=== PATIENT | male | born 1975 | race Caucasian/White ===

== ENCOUNTER 2016-12-27 04:36 | Emergency (ER) | payer SELFPAY ==
[2016-12-27 04:42] VITALS: BP 126/83
[2016-12-27] MEDS ORDERED: BUPIVACAINE HCL 0.75% INJ/PF (7.5 MG/1 ML) 10 ML SDV INJ ONE (05:01)
[2016-12-27] MEDS ORDERED: PENICILLIN V POTASSIUM 500 MG TABLET PO ONE (05:02)
[2016-12-27] MEDS ORDERED: HYDROCODONE/ACETAMINOPHEN 5-325 MG 6 TAB/DSPK PO PRN (05:02)
--- NOTE | 2016-12-27 05:17 | ER Document Report ---
HPI - HPI Patient complains to provider of: dental pain Pain Level: 5 Context: 41-year-old male, chief complaint of dental pain starting yesterday, pain is in the right upper posterior jaw area, patient has known fractures in that area by report. He denies sore throat, fever, neck pain, headache. He states he has had dental caries and extractions in the past. - CARDIOVASCULAR Cardiovascular: DENIES: Chest pain - REPRODUCTIVE Reproductive: DENIES: : - DERM Skin Color: Normal - NURSING COMMENTS Comment: toothache to right upper molar. Past Medical History - General Information source: Patient - Social History Smoking Status: Current Some Day Smoker Frequency of alcohol use: Occasional Drug Abuse: Marijuana Lives with: Alone Family History: Reviewed & Not Pertinent Patient has suicidal ideation: No Patient has homicidal ideation: No Neurological Medical History: Reports: Hx Cerebrovascular Accident Renal/ Medical History: Denies: Hx Peritoneal Dialysis Musculoskeltal Medical History: Reports Hx Musculoskeletal Trauma - c6 facet fx - Immunizations Immunizations up to date: Yes Hx Diphtheria, Pertussis, Tetanus Vaccination: Yes Vertical Provider Document - CONSTITUTIONAL General Appearance: Moderate Distress - patient holding the right side of his face - INFECTION CONTROL TRAVEL OUTSIDE OF THE U.S. IN LAST 30 DAYS: No - HEENT HEENT: Atraumatic, Normocephalic. negative: Normal ENT Exam - Widespread dental decay, otherwise normal exam Mouth Diagram: 1 - Dental fracture with mild surrounding erythema, no drainable abscess or other abnormality noted - NECK Neck: Normal Inspection - RESPIRATORY Respiratory: Breath Sounds Normal, No Respiratory Distress O2 Sat by Pulse Oximetry: 96 - CARDIOVASCULAR Cardiovascular: Regular Rate, Regular Rhythm - GI/ABDOMEN Gastrointestinal: Abdomen Soft, Abdomen Non-Tender Course - Re-evaluation Re-evalutation: Discussed dental block with patient, he eagerly accepted, block with excellent results. No evidence of abscess or other abnormality, discussed treatment, discussed follow-up with dentist, provided with discount clinic list, discussed return precautions, patient states understanding and agreement. - Vital Signs Vital signs: Temp Pulse Resp BP Pulse Ox 97.7 F 64 17 126/83 H 96 12/27/16 04:41 12/27/16 04:41 12/27/16 04:41 12/27/16 04:41 12/27/16 04:41 Procedures - Additional Procedures dental block Notes: 12/27/16 05:30 Alveolar (superior, posterior) nerve block placed on the right side with 3 mL's of 0.75% bupivacaine, 25-gauge needle inserted above the gumline, aspiration performed with no bloody aspiration noted, patient with rapid and full anesthesia afterwards. No significant bleeding or other developed symptoms afterwards. Discharge - Discharge Clinical Impression: Tooth infection Condition: Stable Disposition: HOME, SELF-CARE Additional Instructions: Take the antibiotic medication as prescribed, take the pain medication if needed. Follow-up with the dentist for repair to prevent this from happening again. Return to emergency department for any concerning or worsening symptoms including facial swelling. Prescriptions: Hydrocodone/Acetaminophen [Babcock 5-325 mg Tablet] 1 - 2 tab PO ASDIR #8 tablet Penicillin V Potassium [Penicillin Vk 500 mg Tablet] 500 mg PO BID #20 tablet
== END 2016-12-27 05:23 | disposition home or self-care (01) ==
LOC: ER 04:36
PROC: 3E0T3BZ Introduction of Anesthetic Agent into Peripheral Nerves and Plexi, Percutaneous Approach (ICD-10-PCS; principal; 2016-12-27)
DX: K04.7 Periapical abscess without sinus (principal); F17.200 Nicotine dependence, unspecified, uncomplicated; Z86.73 Personal history of transient ischemic attack (TIA), and cerebral infarction without residual deficits
CPT/HCPCS: 99282; 64400; J3490

== ENCOUNTER 2017-04-12 02:46 | Emergency (ER) | payer SELFPAY ==
[2017-04-12 02:52] VITALS: BP 117/82
--- NOTE | 2017-04-12 03:21 | ER Document Report ---
ED Oral Problem - General Mode of Arrival: Ambulatory Information source: Patient TRAVEL OUTSIDE OF THE U.[place]. IN LAST 30 DAYS: No - HPI Patient complains to provider of: Toothache Onset: Yesterday - Refer to HPI notes Similar symptoms previously: No Recently seen / treated by doctor/dentist: No - General Chief Complaint: Toothache Stated Complaint: TOOTHACHE Time Seen by Provider: 04/12/17 03:09 Notes: Patient is a 41 year old male presenting to the emergency department for a toothache. Patient states his pain started yesterday and has worsened today. Patient states he has had a broken tooth for a while. Patient does not have a dentist. Patient has no known allergies. (ZION FOOTE) - Related Data Allergies/Adverse Reactions: No Known Allergies Allergy (Verified 04/12/17 02:50) Past Medical History - General Information source: Patient - Social History Smoking Status: Unknown if Ever Smoked Family History: None Patient has suicidal ideation: No Patient has homicidal ideation: No Neurological Medical History: Reports: Hx Cerebrovascular Accident Musculoskeltal Medical History: Reports Hx Musculoskeletal Trauma - c6 facet fx Surgical Hx: Negative - Immunizations Immunizations up to date: Yes Hx Diphtheria, Pertussis, Tetanus Vaccination: Yes Review of Systems - Review of Systems Constitutional: No symptoms reported EENT: See HPI, Dental problem Cardiovascular: No symptoms reported Respiratory: No symptoms reported Gastrointestinal: No symptoms reported Genitourinary: No symptoms reported Male Genitourinary: No symptoms reported Musculoskeletal: No symptoms reported Skin: No symptoms reported Hematologic/Lymphatic: No symptoms reported Neurological/Psychological: No symptoms reported -: Yes All other systems reviewed and negative Physical Exam - Vital signs Interpretation: Normal - Vital signs Vitals: Temp Pulse Resp BP Pulse Ox 97.5 F 78 18 117/82 98 04/12/17 02:51 04/12/17 02:51 04/12/17 02:51 04/12/17 02:51 04/12/17 02:51 - Notes Notes: GENERAL: Alert, interacts well, appears uncomfortable. No acute distress. HEAD: Normocephalic, atraumatic. EYES: Appear normal. Pupils equal, round, and reactive to light. ENT: Moist mucus membranes, tongue midline. Tooth #19 is broken and is painful with palpation, there is trismus on the left. NECK: Full range of motion. Supple. Trachea midline. LUNGS: No respiratory distress. EXTREMITIES: Moves all 4 extremities spontaneously. Normal strength. No edema. NEUROLOGICAL: Alert and oriented x3. Normal speech. No focal neurological deficits. GCS 15. PSYCH: Normal affect, normal mood. SKIN: Warm, dry, normal turgor. No rashes or lesions noted. (ZION FOOTE) Course - Re-evaluation Re-evalutation: 04/12/17 Patient with a broken tooth and early dental abscess. Patient will be started on antibiotics and given pain medication. He is to follow-up with a dentist and given the number for the [facility]. Understands agrees with plan. Stable for discharge. (MATTHEW ADKINS) - Vital Signs Vital signs: Temp Pulse Resp BP Pulse Ox 97.5 F 78 18 117/82 98 04/12/17 02:51 04/12/17 02:51 04/12/17 02:51 04/12/17 02:51 04/12/17 02:51 Discharge - Discharge Clinical Impression: Pain, dental, Dental infection Condition: Stable Disposition: HOME, SELF-CARE Instructions: [facility], Penicillin V K ([facility]), Toothache ([facility]) Additional Instructions: Please call the dental clinic this week. Prescriptions: Oxycodone HCl/Acetaminophen [Percocet 5-325 mg Tablet] 1 tab PO Q6HP PRN #15 tablet PRN Reason: Penicillin V Potassium [Penicillin Vk 500 mg Tablet] 500 mg PO TID #30 tablet Forms: Return to Work Scribe Attestation: 04/12/17 09:20 I personally performed the services described in the documentation, reviewed and edited the documentation which was dictated to the scribe in my presence, and it accurately records my words and actions. (MATTHEW ADKINS) Scribe Documentation - Scribe Written by Nabeele:: Zion Foote, Fani, 04/12/2017 16:19 acting as scribe for :: Damien
[2017-04-12] MEDS ORDERED: PENICILLIN V POTASSIUM 500 MG TABLET PO ONE (04:06)
[2017-04-12] MEDS ORDERED: HYDROCODONE/ACETAMINOPHEN 5-325 MG 6 TAB/DSPK PO PRN (04:06)
== END 2017-04-12 04:26 | disposition home or self-care (01) ==
LOC: ER 02:46
DX: K04.7 Periapical abscess without sinus (principal); Z86.73 Personal history of transient ischemic attack (TIA), and cerebral infarction without residual deficits
CPT/HCPCS: 99282

== ENCOUNTER 2018-10-18 07:50 | Emergency (ER) | payer SELFPAY ==
[2018-10-18] MEDS ORDERED: PENICILLIN V POTASSIUM 500 MG TABLET PO ONE (09:12)
[2018-10-18] MEDS ORDERED: LIDOCAINE 2% VISCOUS SOLN 20 ML UDCUP PO ONE (09:12)
--- NOTE | 2018-10-18 09:16 | ER Document Report ---
ED Oral Problem - General Chief Complaint: Toothache Stated Complaint: TOOTHACHE Time Seen by Provider: 10/18/18 09:03 Mode of Arrival: Ambulatory Information source: Patient Notes: 42-year-old male presents to ED for complaint of right upper back dental pain for 2 weeks. He is back to teeth #1 and #2 both a very decayed #1 is more so decayed. He states all the pain is in #1. Patient is alert oriented respirations regular and unlabored speaking in full sentences. He states he took Tylenol 800 mg about 3:00 this morning and did not get any relief. He states he plans to go to [facility] sensing get the infection of the tooth. Patient has multiple tooth missing already. TRAVEL OUTSIDE OF THE U.S. IN LAST 30 DAYS: No - HPI Patient complains to provider of: Toothache Onset: Other - 2 weeks Onset: Gradual Quality of pain: Sharp, Throbbing Severity: Moderate Pain Level: 4 Associated symptoms: Toothache Worsened by: Cold Similar symptoms previously: Yes Recently seen / treated by doctor/dentist: No - Related Data Allergies/Adverse Reactions: No Known Allergies Allergy (Verified 10/18/18 07:50) Past Medical History - General Information source: Patient - Social History Smoking Status: Current Every Day Smoker Cigarette use (# per day): Yes - Half pack per day Chew tobacco use (# tins/day): No Smoking Education Provided: Yes - 4 minutes Frequency of alcohol use: None Drug Abuse: Marijuana Occupation: Landscape Technician Lives with: Friend Family History: None Patient has suicidal ideation: No Patient has homicidal ideation: No - Past Medical History Cardiac Medical History: Reports: None Pulmonary Medical History: Reports: None EENT Medical History: Reports: None Neurological Medical History: Reports: Hx Cerebrovascular Accident Endocrine Medical History: Reports: None Renal/ Medical History: Reports: None Malignancy Medical History: Reports None GI Medical History: Reports: None Musculoskeletal Medical History: Reports Hx Musculoskeletal Trauma - c6 facet fx Skin Medical History: Reports None Psychiatric Medical History: Reports: None Traumatic Medical History: Reports: Hx Spine Fracture - C6 facet fracture Infectious Medical History: Reports: None Surgical Hx: Negative Past Surgical History: Reports: None - Immunizations Immunizations up to date: Yes Hx Diphtheria, Pertussis, Tetanus Vaccination: Yes Review of Systems - Review of Systems Constitutional: No symptoms reported EENT: Mouth pain, Dental problem Cardiovascular: No symptoms reported Respiratory: No symptoms reported Gastrointestinal: No symptoms reported Genitourinary: No symptoms reported Male Genitourinary: No symptoms reported Musculoskeletal: No symptoms reported Skin: No symptoms reported Hematologic/Lymphatic: No symptoms reported Neurological/Psychological: No symptoms reported -: Yes All other systems reviewed and negative Physical Exam - Vital signs Vitals: Temp Pulse Resp BP Pulse Ox 97.9 F 67 16 107/88 H 98 10/18/18 07:59 10/18/18 07:59 10/18/18 07:59 10/18/18 07:59 10/18/18 07:59 Interpretation: Normal - General General appearance: Appears well, Alert - HEENT Head: Normocephalic, Atraumatic Eyes: Normal Pupils: PERRL Ears: Normal External canal: Normal Tympanic membrane: Normal Sinus: Normal Nasal: Normal Mouth/Lips: Caries Mucous membranes: Normal Teeth diagram: 1 - Large cavities both teeth tooth #1 actually hurts tooth #2 he said it is kind of uncomfortable but does not hurt as much is #1 Pharynx: Normal Neck: Normal - Respiratory Respiratory status: No respiratory distress Chest status: Nontender Breath sounds: Normal Chest palpation: Normal - Cardiovascular Rhythm: Regular Heart sounds: Normal auscultation Murmur: No - Abdominal Inspection: Normal Distension: No distension Bowel sounds: Normal Tenderness: Nontender Organomegaly: No organomegaly - Back Back: Normal, Nontender - Extremities General upper extremity: Normal inspection, Nontender, Normal color, Normal ROM, Normal temperature General lower extremity: Normal inspection, Nontender, Normal color, Normal ROM, Normal temperature, Normal weight bearing. No: German's sign - Neurological Neuro grossly intact: Yes Cognition: Normal Orientation: AAOx4 Klemme Coma Scale Eye Opening: Spontaneous Klemme Coma Scale Verbal: Oriented Klemme Coma Scale Motor: Obeys Commands Hilda Coma Scale Total: 15 Speech: Normal Motor strength normal: LUE, RUE, LLE, RLE Sensory: Normal - Psychological Associated symptoms: Normal affect, Normal mood - Skin Skin Temperature: Warm Skin Moisture: Dry Skin Color: Normal Course - Re-evaluation Re-evalutation: 10/18/18 09:18 Presentation is most consistent with likely an infected tooth. Airway is patent. Vitals within normal limits. Patient is able swallow without any difficulty. There is no significant facial swelling. No evidence of Johann angina, apical abscess, or airway obstruction. Patient will be started on antibiotics. I've instructed to follow-up with dentistry as earliest ability for definitive management. At this time will discharge with return precautions and follow-up recommendations. Verbal discharge instructions given a the bedside and opportunity for questions given. Medication warnings reviewed. Patient is in agreement with this plan and has verbalized understanding of return precautions and the need for primary care follow-up in the next 24-72 hours. - Vital Signs Vital signs: Temp Pulse Resp BP Pulse Ox 97.6 F 71 18 106/66 97 10/18/18 09:30 10/18/18 09:30 10/18/18 09:30 10/18/18 09:30 10/18/18 09:30 Discharge - Discharge Clinical Impression: Pain due to dental caries Condition: Stable Disposition: HOME, SELF-CARE Additional Instructions: TOOTHACHE: Your pain is due to dental decay. The tooth must be repaired in order for you to feel better. You will, therefore, be referred to a dentist. We do not have dentists on the staff at [facility]. Severe swelling or drainage around a tooth usually means a dental abscess. This also requires evaluation and treatment by the dentist, but antibiotics may be prescribed while awaiting dental treatment. You should be rechecked immediately if you develop major swelling of the face, increasing pain, a lump in the jaw or gums, headache, difficulty swallow ing, or fever. PENICILLIN V K: You have been given a prescription for Penicillin VK. Your physician has determined that this is the best antibiotic for your condition. Pen VK can be taken with meals, however more of the antibiotic gets into the bloodstream if it's taken on an empty stomach. Penicillin usually has no side effects. However, allergy to penicillins is common. If you have had an allergic reaction to any drug of the penicillin family, you should never take any other penicillin. Notify your doctor at once if you develop hives, itching, swelling, faintness, or shortness of breath. FOLLOW-UP CARE: You have been referred for follow-up care to the dentists listed below. Call the dentists office for an appointment as you were instructed or within the next two days. If you experience worsening or a significant change in your symptoms, notify the physician immediately or return to the Emergency Department at any time for re-evaluation. [facility] [address], [place] [facility] [address] [place] [address] [facility] [address] [facility] [address] [facility] [address] [facility] [address] [email or web address] [address] [place] [address] Thursday- 8:00am to 5:00 pm Will see patients from other [facility]. Charges based on income and family size and accepts Medicare, Medicaid, and Insurances Will pull molars ON LICENSE OF [facility] [place][note 2] [address] Hours of Operation 8:00 am - 4:30 pm weekdays The following dental offices accept Medicaid: [facility] Dr. [address] Dr. Alcazar Dr. Jacques Dr. Braun Martinez Marquis Lutsavage, and [facility] oral surgery Dr. Hi ([place]) Dr. Sanabria ([place] Gh[place]) [facility] Drs. Barnhart and Marcell ([place]) Dr. Mosquera ([place]) [facility] Dr. Houston ([place]) Drs. Harrell and ([place]) Medicaid Care Line Prescriptions: Penicillin V Potassium [Penicillin Vk 500 mg Tablet] 500 mg PO BID #20 tablet Forms: Smoking Cessation Education, Return to Work
[2018-10-18 09:37] VITALS: BP 106/66
== END 2018-10-18 09:37 | disposition home or self-care (01) ==
LOC: ER 07:50
DX: K02.9 Dental caries, unspecified (principal); K08.89 Other specified disorders of teeth and supporting structures; F17.210 Nicotine dependence, cigarettes, uncomplicated; Z71.6 Tobacco abuse counseling
CPT/HCPCS: 99406; 99282; J3490

== ENCOUNTER 2020-06-23 23:28 | Emergency (ER) | payer SELFPAY ==
[2020-06-24] MEDS ORDERED: HYDROCODONE/ACETAMINOPHEN 5-325 MG TABLET PO ONE (00:03)
--- NOTE | 2020-06-24 00:06 | ER Document Report ---
ED Medical Screen (RME) - General Chief Complaint: Foot Pain Stated Complaint: POSSIBLE INFECTION/TOES LEFT FOOT Time Seen by Provider: 06/23/20 23:54 Mode of Arrival: Wheelchair Information source: Patient Notes: HPI; 44-year-old male presents to the emergency room complaining of pain, erythema, discoloration to his left first through fourth toes. States he noticed it starting 2 weeks ago. Has tried using Neosporin without relief. Denies any fevers. Took ibuprofen 2 hours ago without relief. Denies diabetes. PE: Alert and oriented x3. Lungs: Clear to auscultation without rales, rhonchi, wheezes. Heart: Regular rate rhythm without murmurs, rubs, gallops. Palmar aspect of the right great toe with a 1/4 cm area that is blackened in color, there is erythema, cracked skin noted between the first and second toe, second and third toe, third and fourth toe. There is no discharge or draining noted. All areas are tender to palpation. Positive left pedal pulse. Capillary refill less than 3 seconds. I have greeted and performed a rapid initial assessment of this patient. A comprehensive ED assessment and evaluation of the patient, analysis of test results and completion of the medical decision making process will be conducted by additional ED providers. I have specifically instructed the patient or family members with the patient to immediately return to any nursing staff should anything change in the patient's condition or with their chief complaint. TRAVEL OUTSIDE OF THE U.S. IN LAST 30 DAYS: No - Related Data Allergies/Adverse Reactions: No Known Allergies Allergy (Verified 06/24/20 00:01) Home Medications: low dose asa Past Medical History Neurological Medical History: Reports: Hx Cerebrovascular Accident Renal/ Medical History: Denies: Hx Peritoneal Dialysis Musculoskeltal Medical History: Reports Hx Musculoskeletal Trauma - c6 facet fx Traumatic Medical History: Reports: Hx Spine Fracture - C6 facet fracture - Immunizations Immunizations up to date: Yes Hx Diphtheria, Pertussis, Tetanus Vaccination: Yes Physical Exam - Vital signs Vitals: Temp Pulse BP Pulse Ox 97.9 F 77 111/76 97 06/23/20 23:42 06/23/20 23:42 06/23/20 23:42 06/23/20 23:42 Course - Vital Signs Vital signs: Temp Pulse Resp BP Pulse Ox 97.9 F 77 111/76 97 06/23/20 23:42 06/23/20 23:42 06/23/20 23:42 06/23/20 23:42
[2020-06-24 00:29] LABS: ABSOLUTE BASOPHILS # (AUTO) 0.1 10^3/uL (0.0-0.2); ABSOLUTE EOSINOPHILS # (AUTO) 0.2 10^3/uL (0.0-0.6); ABSOLUTE LYMPHOCYTES (AUTO) 3.9 10^3/uL (0.5-4.7); ABSOLUTE MONOCYTES (AUTO) 1.2 10^3/uL (0.1-1.4); ABSOLUTE NEUT (AUTO) 5.7 10^3/uL (1.7-8.2); BASOPHILS % (AUTO) 1.2 % (0-2); EOSINOPHILS % (AUTO) 2.1 % (0-6); HEMATOCRIT 43.5 % (37.9-51.0); HEMOGLOBIN 14.5 g/dL (13.5-17.0); MEAN CORPUSCULAR HEMOGLOBIN 30.1 pg (27.0-33.4); MEAN CORPUSCULAR HGB CONC 33.4 g/dL (32.0-36.0); MEAN CORPUSCULAR VOLUME 90 fl (80-97); MONOCYTES % (AUTO) 10.7 % (3-13); PLATELET COUNT 316 10^3/uL (150-450); RED BLOOD COUNT 4.82 10^6/uL (4.35-5.55); TOTAL CELLS COUNTED % (AUTO) 100 %; WHITE BLOOD COUNT 11.3 10^3/uL (4.0-10.5)
[2020-06-24 00:51] LABS: ALBUMIN 4.1 g/dL (3.5-5.0); ALKALINE PHOSPHATASE 70 U/L (38-126); ANION GAP 11 (5-19); ASPARTATE AMINO TRANSFERASE 22 U/L (17-59); BILIRUBIN,DIRECT 0.1 mg/dL (0.0-0.4); BILIRUBIN,TOTAL 0.4 mg/dL (0.2-1.3); BLOOD UREA NITROGEN 13 mg/dL (7-20); CALCIUM 9.7 mg/dL (8.4-10.2); CARBON DIOXIDE 25 mmol/L (22-30); CHLORIDE 109 mmol/L (98-107); GLUCOSE 95 mg/dL (75-110); POTASSIUM 4.2 mmol/L (3.6-5.0)
[2020-06-24 00:52] LABS: C-REACTIVE PROTEIN < 5.0 mg/L (<10.0)
--- NOTE | 2020-06-24 01:07 | RADIOLOGY REPORT (SQ) ---
Left foot x-ray three views on 06/24/2020 at 12:25 AM Clinical indications: Left foot pain COMPARISON: 07/16/2013 FINDINGS: Plantar calcaneal spur is noted. There are no fractures. Visualized joints are well aligned. No other bony abnormality is noted. IMPRESSION: No acute abnormality.
[2020-06-24 01:31] LABS: ERYTHROCYTE SEDIMENTATION RATE 17 mm/hr (0-15)
[2020-06-24] MEDS ORDERED: SULFAMETHOXAZOLE/TRIMETHOPRIM 800-160 MG TABLET PO ONE (04:34)
[2020-06-24] MEDS ORDERED: CEPHALEXIN 500 MG CAPSULE PO ONE (04:34)
--- NOTE | 2020-06-24 04:36 | ER Document Report ---
ED General - General Chief Complaint: Foot Pain Stated Complaint: POSSIBLE INFECTION/TOES LEFT FOOT Time Seen by Provider: 06/23/20 23:54 Mode of Arrival: Wheelchair Information source: Patient Notes: Patient is a 44-year-old male coming in today with infection of the left foot. Patient notes this has been going on for the past several days. He is having a lot of drainage from his toes. Denies fevers and shaking chills. Denies diabetes history. Denies trauma. TRAVEL OUTSIDE OF THE [place].S. IN LAST 30 DAYS: No - Related Data Allergies/Adverse Reactions: No Known Allergies Allergy (Verified 06/24/20 00:01) Home Medications: low dose asa Past Medical History - General Information source: Patient - Social History Smoking Status: Current Every Day Smoker Family History: None Neurological Medical History: Reports: Hx Cerebrovascular Accident Renal/ Medical History: Denies: Hx Peritoneal Dialysis Musculoskeletal Medical History: Reports Hx Musculoskeletal Trauma - c6 facet fx Traumatic Medical History: Reports: Hx Spine Fracture - C6 facet fracture - Immunizations Immunizations up to date: Yes Hx Diphtheria, Pertussis, Tetanus Vaccination: Yes Review of Systems - Review of Systems Notes: Constitutional: No fevers. No chills. EENT: No eye redness. No eye pain. No ear pain. No sore throat. Cardiovascular: No chest pain. No palpitations. Respiratory: No cough. No shortness of breath. No respiratory distress. Gastrointestinal: No abdominal pain. No nausea, vomiting, or diarrhea. Genitourinary: Atraumatic. No lesions. No pain. No discharge. Musculoskeletal: Positive for left foot pain Skin: + skin infection left foot Lymphatic: No swollen lymph nodes. Neurologic: No headache. No syncope. Psychiatric: No suicidal or homicidal ideation. Physical Exam - Vital signs Vitals: Temp Pulse BP Pulse Ox 97.9 F 77 111/76 97 06/23/20 23:42 06/23/20 23:42 06/23/20 23:42 06/23/20 23:42 - Notes Notes: General: Well-developed, well-nourished. In no acute distress. Non-toxic appearing. Cardiac: Well-perfused. Regular rate and rhythm. No murmurs, rubs, or gallops. Pulmonary: No respiratory distress. No cyanosis. Bilateral lung fiels are clear to auscultation. Abdominal: Non-distended. Non-rigid. Bowels sounds are present in all four quadrants. No guarding or rebound. HEENT: Head is atraumatic. Conjunctivae not reddened. No tearing. PERRL. EOMI. Orbits atraumatic. No periorbital swelling or erythema. Oropharynx is without erythema, swelling, or exudates. Neck: Supple. No adenopathy. No meningismus. Dermatologic: Warm with good turgor. No rash. Atraumatic. Chest: Atraumatic. No chest wall tenderness to palpation. Musculoskeletal: The anterior digital spaces of the left foot are inflamed. There is a slight evidence of skin sloughing. There is a sticky yellow-colored drainage noted between the toes. There are no ulcers. Genitourinary: Examination deferred Neurologic: No gross neurologic deficits. Psychiatric: Normal mood. Course - Re-evaluation Re-evalutation: 06/24/20 04:51 Patient has reassuring labs. No sign of any diabetes. His right foot which is unaffected does show a lot of dry skin between the toes. It appears that the left foot that is affected is most likely cellulitic from a staph infection. We will start him on Keflex and Bactrim and also give him mupirocin ointment to spread between the digits. - Vital Signs Vital signs: Temp Pulse Resp BP Pulse Ox 97.9 F 77 111/76 97 06/23/20 23:42 06/23/20 23:42 06/23/20 23:42 06/23/20 23:42 - Laboratory Result Diagrams: 06/24/20 00:20 06/24/20 00:20 Laboratory results interpreted by me: 06/24/20 06/24/20 00:20 00:20 WBC 11.3 H ESR 17 H Chloride 109 H Discharge - Discharge Clinical Impression: Cellulitis of left foot Condition: Good Disposition: HOME, SELF-CARE Instructions: Cellulitis ([facility]) Additional Instructions: Please keep the skin of your left foot clean with antibacterial soap and water. Make sure to dry it thoroughly. You can apply the ointment 2-3 times a day as needed. Also be sure to take the oral antibiotics as directed for full duration. If your symptoms get worse you can return here. Prescriptions: Sulfamethoxazole/Trimethoprim [Bactrim Ds Tablet] 1 each PO BID #20 tablet Mupirocin [Bactroban 2% Ointment 22 gm] 1 applic TP TID #1 tube Cephalexin [Keflex] 500 mg PO QID #40 capsule
[2020-06-24] MEDS ORDERED: HYDROCODONE/ACETAMINOPHEN 5-325 MG (6 TAB/ER DISP) PO PRN (04:56)
[2020-06-24 05:06] VITALS: BP 120/88
== END 2020-06-24 05:09 | disposition home or self-care (01) ==
LOC: ER 23:28
DX: L03.116 Cellulitis of left lower limb (principal); F17.200 Nicotine dependence, unspecified, uncomplicated; Z79.82 Long term (current) use of aspirin
CPT/HCPCS: 36415; 80053; 83605; 85025; 85652; 86140; 99284